=== PATIENT | female | born 1940 | race Caucasian/White ===

== ENCOUNTER → 2023-10-16 15:07 | Outpatient (REF) | payer OTHER, SELFPAY | LOC: HWRAD 15:07 | PROVIDERS: ATTENDING PHYSICIAN Physician Assistant Medical | DX: R05.9 Cough, unspecified (principal) | CPT/HCPCS: 71046 ==

== ENCOUNTER 2023-11-15 22:41 | Inpatient (IN) | payer OTHER, SELFPAY ==
[2023-11-15 17:45] VITALS: BP 143/70
[2023-11-15 19:23] VITALS: BP 135/67; BMI 35.9
--- NOTE | 2023-11-15 19:43 | ED.MUSCINJ ---
HPI-Injury
General
Chief Complaint: Fall
Source: patient
Exam Limitations: none
Time Seen by Provider: 11/15/23 18:16
Nursing documentation reviewed up to this point in time: agreed with
History of Present Illness-Injury
Is this injury a work related problem?: No
Is pt an associate of [facility]/[place]?: No
Initial Injury comments:
Patient to ED after trip and fall at home. Tripped over towel on kitchen floor. Fell onto her left hip. Denies hitting her head. COmplains of pain to left hip. 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 Brought to ED by daughter for eval
Past History
Past History
ED Past Medical History: GERD, HTN and Hypothyroidism
ED Past Surgical History: Orthopedic (knee, lumbar) and Other (sinus)
Social History
Tobacco: Non-smoker
Alcohol: None
Drug: None
Review of Systems
Review of Systems
Allergies reviewed?: Yes
All Other Systems: ROS reviewed and negative except as documented in HPI and ROS
Constitutional: Reports no symptoms
EENT: Reports no symptoms
Respiratory: Reports no symptoms
Cardiac: Reports no symptoms
ABD/GI: Reports no symptoms
: Reports no symptoms
Musculoskeletal: Reports joint pain (pain to left hip)
Skin: Reports other (skin tear to left dorsal hand)
Neurological: Reports no symptoms
Psychiatric: Reports no symptoms
Musculoskeletal Injury Exam
Musculoskeletal Injury Exam
Left Hip:
Pain with Movement?: Moderate
Tender to palpation?: Moderate
Soft tissue swelling?: Mild
External deformity and angulation?: None
Joint effusion?: None
Contusion?: Moderate
Hematoma-local bleeding into tissue?: None
Strain- Sprain- Tear (Connective tissue injury)?: None
Crepitus with movement?: No
Joint instability?: No
Malalignment/deformity?: No
Range of motion: Limited
Distal skin color and temperature: normal-warm & good color
Capillary Refill: normal
Normal distal neurovascular exam?: Yes
Peripheral Pulses: posterior tibial (left): 3+ and dorsalis pedis (left): 3+
Phy Exam
General Physical Exam
General Presentation: well appearing and mild distress
General age: appears stated age
General Skin: warm and dry
General Habitus: normal
General Mental: alert
Cardiovascular Exam
Cardiovascular Exam: regular rate/rhythm
Pulmonary Exam
Pulmonary Exam: lungs clear and no respiratory distress
Neurological Exam
Neurological Exam: alert, oriented x3, CN II-XII intact, no motor deficits, no sensory deficits and speech normal
Musculoskeletal Exam
Musculoskeletal Exam: neuro vasc intact and other (Subcapital fx L hip. )
Skin Exam
Skin Exam: normal color, warm/dry and no rash
Psychiatric Exam
Psychiatric Exam: normal mood/affect
Injury Course
Orders/Labs/Results
Orders:
Orders
11/15/23 18:28
Hip, Left 2-3 Views [CR Hip - LT w/wo Pel 2-3 Vw*] Urgent
Comment:
Reason For Exam: fall
Include a pelvis x-ray?: Yes
11/15/23 19:49
Morphine Sulfate 2 mg IV NOW STA
Ondansetron Injectable [Zofran] 4 mg IV NOW STA
11/15/23 19:57
Type+Screen Urgent
Complete Blood Count/With Diff Urgent
Comprehensive Metabolic Panel Urgent
PTT Urgent
Prothrombin Time Urgent
11/15/23 19:58
Consult Orthopedic [ORTHOPEDIC CONSULT] Urgent
Consulting Provider: Agusto Durbin
Was physician already notified: Yes
11/15/23 20:43
0.9% Sodium Chloride 1000 ml [Nss] 1,000 ml IV BOLUS
11/15/23 22:15
Admit/Transfer Patient As Directed
Co-Sign Provider:
Level of Care: Inpatient admission
Assign to:: Medical/Surgical
Physician / Group: Hospitalist
Diagnosis: broken hip
Reason for Hospitalization: Broken hip
Expected length of stay greater than two midnights?: Yes
ELOS- Estimated Length of Stay in days: 3
I certify the patient meets the requirements for IP care: Yes
PRN Pain Medication Management As Directed
May give lesser potent ordered pain med per pt: Yes
preference::
Protocol:: Medication orders for pain may be administered in a
manner that supports deferring to patient preference
when the pt is:
- Requesting an ordered lesser potent pain medication.
Least to most potent pain medications are defined
as: acetaminophen < NSAID < tramadol < opioids
(morphine, oxycodone, hydromorphone).
- Requesting a lesser dose of the same medication IF
ORDERED.
- Requesting a less intrusive route of administration
if both routes are prescribed by the provider (PO <
IV).
11/15/23 22:17
Code Status As Directed
Resuscitation Status: Full Code
Abnormal Lab Results
11/15/23
19:57
RBC 3.73 L 10^6/uL
(4.20-5.40)
Hgb 11.3 L g/dL
(12.0-16.0)
Hct 32.5 L %
(37.0-47.0)
Abs Immat Gran (auto) 0.1 H 10^3/uL
(0-0.05)
Absolute Neuts (auto) 8.0 H 10^3/uL
(1.4-6.5)
Absolute Lymphs (auto) 1.0 L 10^3/uL
(1.2-3.4)
Immature Gran % 0.6 H %
(0-0.5)
Neutrophils % 81.4 H %
(42.2-75.2)
Lymphocytes % 10.4 L %
(20.5-51.1)
Sodium 130 L mmol/L
(135-145)
BUN 22 H mg/dl
(7-17)
Glucose 101 H mg/dl
(70-99)
Total Protein 6.1 L g/dl
(6.3-8.2)
11/15/23 19:57
11/15/23 19:57
*Radiology
Radiology exam reviewed: radiology read reviewed
*Pulse Oximetry
Patient hypoxic: no
*Critical Care Note
Total Time (30-74mins, 75-104mins- exclusive of procedures): Not Applicable
Update Note
Update Note:
Dr. Durbin notified of injury. WIll keep NPO after midnight. For possible OR in AM
ED Attending Note
-
Portions of this chart may have been created with voice recognition software.� Occasional wrong word or��sound alike� substitutions may have occurred due to the inherent limitations of voice recognition software.
Discharge Plan
Departure
Patient Disposition: Admit
Date of Disposition: 11/15/23
Time of Disposition: 19:58
Presentation/result/management discussed w/ accepting MD/DO: Hospitalist
Patient with high blood pressure during this ER visit?: No
Condition: Fair
Discharge Problem:
Closed left hip fracture
Prescriptions:
No Action
losartan 50 mg Tablet
50 mg PO BID
carisoprodol 350 mg Tablet
350 mg PO TID PRN (Reason: muscle relaxer)
amlodipine 5 mg Tablet
5 mg PO HS
levothyroxine 50 mcg Tablet
50 mcg PO DAILY
metoprolol tartrate 50 mg Tablet
25 mg PO BID
omeprazole 20 mg Capsule,Delayed Release(Dr/Ec)
20 mg PO DAILY
hydroxychloroquine 200 mg Tablet
200 mg PO BID
clobetasol 0.05 % Lotion
1 applic TOPICAL BID
Referrals:
Ammy Cummings PA-C [Family Provider] -
Interventions
Interventions:
*Risk Screen - Suicide Last Done: 11/15/23 17:45
*General Assessment Last Done: 11/15/23 17:45
*Neglect/Abuse Screening Last Done: 11/15/23 17:45
*ED COVID-19 Vaccine History Last Done: 11/15/23 19:23
ED-Musculoskeletal Assessment Last Done: 11/15/23 19:23
ED- Neurological Assessment Last Done: 11/15/23 19:23
ED-Skin Assessment Last Done: 11/15/23 19:23
Discharge Date and Time
Print Language: SERBIAN
[2023-11-15] MEDS: MORPHINE SULFATE 2 MG IV (19:59)
[2023-11-15] MEDS: ZOFRAN 4 MG IV (19:59)
[2023-11-15 20:11] LABS: % Basophils 0.4 % (0-2); % Eosinophils 1.7 % (0-6); % Immature Granulocytes 0.6 % (0-0.5); % Lymphocytes 10.4 % (20.5-51.1); % Monocytes 5.5 % (1.7-9.3); % Neutrophils 81.4 % (42.2-75.2); Absolute Eosinophils 0.2 10^3/uL (0-0.7); Absolute Immature Granulocytes 0.1 10^3/uL (0-0.05); Absolute Monocytes 0.5 10^3/uL (0.1-0.6); Hematocrit 32.5 % (37.0-47.0); Hemoglobin 11.3 g/dL (12.0-16.0); Mean Corp Hgb Conc. 34.8 g/dL (33.0-37.0); Mean Corpuscular Hgb 30.3 pg (27.0-31.0); Mean Corpuscular Volume 87.1 fL (81.0-99.0); Mean Platelet Volume 8.6 fL (7.4-10.4); Nucleated Red Blood Cells % 0 %; Platelet Count 211 10^3/uL (130-400); Red Blood Cell Count 3.73 10^6/uL (4.20-5.40); Red Cell Dist. Width 13.6 % (11.5-14.5); White Blood Cell Count 9.8 10^3/uL (4.8-10.8)
[2023-11-15 20:20] LABS: INR 1.06; PT 13.6 Sec (11.4-14.6)
[2023-11-15 20:21] LABS: APTT 25.7 Sec (23.4-35.0)
[2023-11-15 20:24] LABS: ALT (SGPT) 16 U/L (0-35); AST (SGOT) 27 U/L (14-36); Albumin 3.8 g/dl (3.5-5.0); Alkaline Phosphatase 101 U/L (38-126); Blood Urea Nitrogen 22 mg/dl (7-17); Calcium 9.3 mg/dl (8.4-10.2); Carbon Dioxide 24 mmol/L (22-30); Chloride 99 mmol/L (98-107); Estimated Creatinine Clearance 48 ml/min; Glucose 101 mg/dl (70-99); Potassium 4.2 mmol/L (3.5-5.1); Sodium 130 mmol/L (135-145); Total Bilirubin 0.4 mg/dl (0.2-1.3); Total Protein 6.1 g/dl (6.3-8.2); eGFR 55.55
[2023-11-15] MEDS: NSS 1000 IV ×2 (21:00→23:56)
[2023-11-15 21:01] VITALS: BP 149/66
--- NOTE | 2023-11-15 21:53 | HPS.HSE ---
Family Physician
-
Family Physician: Ammy Cummings PA-C
Chief Complaint
-
Broken hip
History of Present Illness
83 woman had a fall at home. She tripped over a towel on kitchen floor. She fell onto her left hip. She denies hitting her head, but complains of pain to left hip. 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 At the time of my interview she was comfortable if
she was not moving. The x-ray in the ED showed a Slightly impacted subcapital fracture of the left hip.
Medical History
Past Medical History
Past Medical History: Reports Other
Additional Past Medical History:
knee & lumbar surgery
sinus surgery
Stage 3 chronic kidney disease,
Primary osteoarthritis involving multiple joints
Acrocyanosis
Body mass index [BMI] 35.0-35.9,
Subacute cutaneous lupus erythematosus
Bilateral nonexudative age-related macular degeneration, unspecified stage
Hiatal hernia
Prediabetes
Sjogren's syndrome, with unspecified organ involvement
Other obesity due to excess calories
Arthropathy of lumbar facet joint
History of DVT (deep vein thrombosis)
Primary hypertension
Acquired hypothyroidism
Osteopenia, unspecified location
Past Surgical History: Reports Other
Additional Past Surgical History:
see above
Social History
Tobacco: Non-smoker
Alcohol: None
Drug: None
Living: With Family
Family History
Family History: Not pertinent
Allergies / Home Medications
Allergies reflects when Allergies were last updated in [facility].
Home Medications with original date entered in [facility]
Allergy/Medication List:
Allergies
Allergy/AdvReac Type Severity Reaction Status Date / Time
No Known Allergies Allergy Unverified 11/15/23 17:45
Home Medications
amlodipine 5 mg tablet 5 mg PO HS 11/15/23
carisoprodol 350 mg tablet 350 mg PO TID PRN muscle relaxer 11/15/23
clobetasol 0.05 % lotion 1 applic topical BID 11/15/23
hydroxychloroquine 200 mg tablet 200 mg PO BID 11/15/23
levothyroxine 50 mcg tablet 50 mcg PO DAILY 11/15/23
losartan 50 mg tablet 50 mg PO BID 11/15/23
metoprolol tartrate 50 mg tablet 25 mg PO BID 11/15/23
omeprazole 20 mg capsule,delayed release 20 mg PO DAILY 11/15/23
Review of Systems
-
History Source: Patient
A 12 point ROS was completed and negative except as noted: Yes
Physical Exam
Vital Signs
Vital Signs
Temp Pulse Resp BP Pulse Ox
98.3 F 57 16 149/66 97
11/15/23 19:23 11/15/23 21:01 11/15/23 21:01 11/15/23 21:01 11/15/23 21:01
Physical Exam
General: Well Developed, Well Nourished, No Apparent Distress, Comfortable and Conversant
HEENT: Nose Appears Normal and Ears Appear Normal
Respiratory: Clear
Cardiac: S1/S2 and Regular Rhythm
GI: Soft, Non Tender and Non Distended
Musculoskeletal: No Clubbing, No Cyanosis and No Edema
Skin: Warm and Dry; No Rash
Neuro: Awake, Alert, Oriented and AO x 3
Psych: Calm
Laboratory Results
-
11/15/23 19:57
11/15/23 19:57
Laboratory Results
PT 13.6 Sec (11.4-14.6) 11/15/23 19:57
INR 1.06 11/15/23 19:57
APTT 25.7 Sec (23.4-35.0) 11/15/23 19:57
Total Bilirubin 0.4 mg/dl (0.2-1.3) 11/15/23 19:57
AST 27 U/L (14-36) 11/15/23 19:57
ALT 16 U/L (0-35) 11/15/23 19:57
Alkaline Phosphatase 101 U/L (38-126) 11/15/23 19:57
Data Reviewed
-
Lab Data: Labs Reviewed by me
Impression/Plan
-
IMPRESSION:
83 woman fell and broke her hip. Other significant findings:
Mild anemia H/H 11.3/32.5
Na 130
BUN/Creat 22/1.0
PLAN:
1. Anemia - not clinically significant at this time
Follow as outpatient
2. NA 130 - likely hypovolemic hyponatremia
Gentle hydration tonight with saline
Recheck in am
3. BUN/Creat > 20
Gentle hydration
recheck in am
4. Broken hip. Ortho aware
Ortho eval in am
Pain control as needed
NPO after MN, in case surgery is indicated in the AM
Full code
Heparin SQ for DVTp
[2023-11-15 23:36] VITALS: BP 155/72
[2023-11-15 23:37] VITALS: BMI 37.0
[2023-11-15] MEDS: HEPARIN 5000 UNITS SC (23:56)
[2023-11-16] VITALS (13 sets, daily range): BP systolic 92–170; BP diastolic 42–90
[2023-11-16] MEDS: MORPHINE SULFATE 2 MG IV ×2 (00:04→10:07)
[2023-11-16] MEDS: NORVASC 5 MG PO ×2 (00:04→21:47)
[2023-11-16] MEDS: PROTONIX 40 MG PO ×3 (01:40→21:45)
[2023-11-16] MEDS: SYNTHROID 50 MCG PO (05:52)
[2023-11-16 06:33] LABS: Hematocrit 31.5 % (37.0-47.0); Hemoglobin 10.8 g/dL (12.0-16.0); Mean Corp Hgb Conc. 34.3 g/dL (33.0-37.0); Mean Corpuscular Volume 87.5 fL (81.0-99.0); Mean Platelet Volume 8.9 fL (7.4-10.4); Platelet Count 191 10^3/uL (130-400); Red Cell Dist. Width 13.7 % (11.5-14.5); White Blood Cell Count 7.3 10^3/uL (4.8-10.8)
[2023-11-16 06:52] LABS: Blood Urea Nitrogen 16 mg/dl (7-17); Calcium 8.9 mg/dl (8.4-10.2); Carbon Dioxide 25 mmol/L (22-30); Chloride 102 mmol/L (98-107); Estimated Creatinine Clearance 53 ml/min; Glucose 93 mg/dl (70-99); Potassium 4.4 mmol/L (3.5-5.1); Sodium 131 mmol/L (135-145); eGFR > 60.00
--- NOTE | 2023-11-16 08:09 | W.PN.HOSP.TC ---
Today's Communication/Plan
-
Hip surgery today
Assessment / Plan
Assessment / Plan
Physical Exam
General: Not in acute distress
HEENT: Normocephalic
Respiratory: Clear to Auscultation Bilaterally
Cardiac: S1/S2 and Regular Rhythm
GI: Soft, Non Tender and Non Distended. Positive bowel sounds.
Musculoskeletal: No Cyanosis and No Edema
Skin: Warm and Dry
Neuro: Awake, Alert, Oriented and AO x 3
Psych: Calm

Assessment/Plan
83 y/o female presented after a fall at home. She tripped over a towel on kitchen floor. She fell onto her left hip. She denies hitting her head, but complained of pain to left hip. 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 The x-ray in the ED showed a
Slightly impacted subcapital fracture of the left hip.
83 woman with broken hip. mechanical fall. stable.
Left Hip Fracture
-Ortho consulted, appreciate recommendations
-Okay for surgery, elevated risk due to age and nature of surgery, but surgery is needed to avoid complications and disability going forward
Mild anemia H/H 11.3/32.5
-Continue to monitor CBC
Hyponatremia
-Continue to monitor BMP
BUN/Creat > 20 - RESOLVED status post gentle hydration
Hypertension
Hypothyroidism
History of DVT
CKD Stage 3
History of Subcutaneous SLE
Sjogren's Syndrome
Full code
Heparin SQ for DVTp
Anticipated Discharge: 24 - 48 hours
Subjective/Interval History
-
Date of Service: November 16, 2023
Patient was seen and examined. She denied any pain or any other complaints.
Objective Data
-
Labs:
Laboratory Results
11/15/23 11/16/23
19:57 06:10
WBC 9.8 7.3
Hgb 11.3 L 10.8 L
Hct 32.5 L 31.5 L
Plt Count 211 191
PT 13.6
INR 1.06
APTT 25.7
Sodium 130 L 131 L
Potassium 4.2 4.4
Chloride 99 102
Carbon Dioxide 24 25
BUN 22 H 16
Creatinine 1.0 0.9
Glucose 101 H 93
Calcium 9.3 8.9
Total Bilirubin 0.4
AST 27
ALT 16
Alkaline Phosphatase 101
Vital Signs:
Vital Signs
Temp Pulse Resp BP Pulse Ox
98.7 F 64 14 170/90 96
11/15/23 23:36 11/15/23 23:36 11/15/23 23:36 11/16/23 00:06 11/15/23 23:36
I&O
11/15/23 11/16/23 11/17/23
06:59 06:59 06:59
Intake Total 600 / 600
Balance 600 / 600
--- NOTE | 2023-11-16 09:14 | CON.ORTHO ---
Consultation
-
Date/Time Consultation Requested: Nov 27
Date/Time Consultation Performed: Nov 27
Requesting Provider: WAYNE Pascual
Performing Provider: Christiano Horton
Reason for Consultation: Left hip fracture
Consultation - Orthopedics
History
Full H&P Dictation to follow
HPI:
Requested in consultation to this very pleasant 83-year-old white female with a PMH of Stage 3 chronic kidney disease, Primary osteoarthritis involving multiple joints, Acrocyanosis, Subacute cutaneous lupus erythematosus, Bilateral nonexudative
age-related macular degeneration, unspecified stage, Hiatal hernia, Prediabetes, Sjogren's syndrome, with unspecified organ involvement, History of DVT (deep vein thrombosis), Primary hypertension, Acquired hypothyroidism, Osteopenia who sustained
a mechanical slip and fall on a towel in the kitchen at home. She landed on her left side. Due to an inability to get to her feet and ambulate she was transported here to where plain radiographs did confirm a subcapital fracture of her left
proximal femur. denies any previous issues or injuries to the left hip. She does use a rolling walker at baseline, which unfortunately she was not using at the time of the fall. She does have a history lumbar and knee surgery. We have been
requested in consultation with regards to her left hip fracture
Allergies / Home Medications
Allergy/AdvReac Type Severity Reaction Status Date / Time
No Known Allergies Allergy Unverified 11/15/23 17:45
�Medication �Instructions �Recorded
amlodipine 5 mg tablet 5 mg PO HS 11/15/23
carisoprodol 350 mg tablet 350 mg PO TID PRN muscle relaxer 11/15/23
clobetasol 0.05 % lotion 1 applic topical BID 11/15/23
hydroxychloroquine 200 mg tablet 200 mg PO BID 11/15/23
levothyroxine 50 mcg tablet 50 mcg PO DAILY 11/15/23
losartan 50 mg tablet 50 mg PO BID 11/15/23
metoprolol tartrate 50 mg tablet 25 mg PO BID 11/15/23
omeprazole 20 mg capsule,delayed 20 mg PO BID 11/15/23
release
Vital Signs / Lab Results
Temp Pulse Resp BP Pulse Ox
98.6 F 77 14 154/72 96
11/16/23 07:35 11/16/23 07:35 11/16/23 07:35 11/16/23 07:35 11/16/23 07:35
11/16/23 06:10
11/16/23 06:10
Assessment / Plan
PE: Afeb. Bedrest. Left hip skin intact. LLE short and ER. Generalized pain to palpation about the left hip. Positive logroll LLE. Deferred range of motion due to known fracture. Knee is nontender. Calf is soft and nontender. Neurovascularly
intact in her left lower extremity
Xrays: LEFT subcapital proximal femur fracture
Impresson: DELFINO
Plan: I discussed extensively with the patient and her daughter bedside. unfortunately her left hip fracture would be best served with hemiarthroplasty. I discussed the nonsurgical and surgical options and all the RBAs of each approach. After
accepting all the proposed risks of surgery they would like to proceed. we are planning for a bit later today under the direction of Dr. Horton to proceed to the OR for left hip hemiarthroplasty. Briefly discussed the postop and rehab course and
will appreciate [facility] assistance with disposition. She does use a rolling walker at baseline. surgical and blood consents have been signed. Operative site has been marked as the left hip. She will remain NPO. T&S has been requested. OR aware. [employer]
and irrigation products are on-call to the OR. Again we will be proceeding a bit later today for a hemiarthroplasty of her LEFT hip
[2023-11-16] MEDS: NSS 1000 IV (09:35)
[2023-11-16] MEDS: PLAQUENIL 200 MG PO ×2 (09:55→21:47)
[2023-11-16] MEDS: LOPRESSOR 25 MG PO ×2 (09:56→21:46)
[2023-11-16] MEDS: COZAAR 50 MG PO ×2 (09:56→21:48)
[2023-11-16] MEDS: HEPARIN 5000 UNITS SC ×2 (09:57→21:47)
--- NOTE | 2023-11-16 12:07 | CM ---
Addendum entered by Alexandra Poon 11/16/23 14:02:
immigration manager spoke with patient and patient's daughter and per patient's daughter patient had been using a scooter and electric w/c in home. immigration manager reviewed possible rehab options and patient's daughter has selected [facility], referral
sent to [facility].
Plan; Skilled placement at [facility] when stable, needs Auth.
Original Note:
immigration manager reviewed patient's chart and met with patient and patient states that she lives with her daughter and granddaughter in a 2 story home, with stair glide to 2nd floor where patient's bed and bathroom are. Patient is independent with adl's
and uses a walker with ambulation. Patient states that her daughter is a nurse and would like bilingual patient support caseworker to reach out to her to review discharge plan for patient.
Pharmacy: [facility]
PCP: Ammy Cummings
Plan; Patient for possible OR today and bilingual patient support caseworker will follow with patient progress for discharge planning, possible rehab as mentioned by orthopedic physician.
--- NOTE | 2023-11-16 17:57 | OR.RPT ---
Operative Report
Operative Report
Orthopaedic Surgery Operative Note
DATE OF OPERATION: 11/16/2023
PREOPERATIVE DIAGNOSES: Femoral neck fracture, left
POSTOPERATIVE DIAGNOSES: Same
OPERATION PERFORMED: Left hip hemiarthroplasty (22 modifier for complexity)
SURGEON: Nacho Horton MD
ELECTRO PLATER: Zoie Zelaya PA-C who helped with patient and limb positioning and retraction
ANESTHESIA: General
COMPLICATIONS: None.
ESTIMATED BLOOD LOSS: 100 mL.
DRAINS: None
SPECIMEN: None
FINDINGS: Displaced fracture of the femoral neck
IMPLANTS: Sasha [employer] stem size 13 standard offset, Size 47 Endo unipolar head, DJO bone cement, cement restrictor, distal centralizer
INDICATIONS: The patient presented to the emergency department after a fall with new onset hip pain. Xrays showed a left femoral neck fracture. I discussed treatment options with the patient and discussed that based on the displacement that fixation
of the fracture may have a high risk of complication and failure. I discussed surgical treatment with arthroplasty. Based on the patient�s age and activity level, shared decision was to proceed with hemiarthroplasty. I reviewed the risks, benefits,
and alternatives of various treatment options. The patient understood the risks which included, but were not limited to, bleeding, infection, failure to relieve pain, more pain than preop, damage to blood vessels and nerves, need for reoperation,
mechanical failure of the implants, wound healing problems, stiffness, instability, blood clot, pulmonary embolism, myocardial infarction, pneumonia, arrhythmia, CVA, and . The patient accepted these risks and wished to proceed. All questions
were answered, and informed consent was obtained.
PROCEDURE IN DETAIL:
The patient was identified in the preoperative holding area. The left hip was identified as the operative site. The patient was taken in the operating room and transferred to the operative table. General anesthesia was performed. IV antibiotics and
tranexamic acid were administered. The patient was placed in the lateral position with Stulberg hip positioners. Axillary roll was placed. The down leg was well padded. All bony prominences were well padded. The operative limb was prepped and draped
in the usual sterile fashion.
Time out was performed. A posterolateral approach to the hip was used. The skin incision was centered over the greater trochanter. This was taken down sharply through subcutaneous tissues. Meticulous hemostasis was achieved throughout the case with
electrocautery. We split the fascia patricia in line with skin incision. I split the gluteus amalia bluntly. We cauterized all crossing vessels as we split it. I palpated the sciatic nerve and made sure it was well posterior in the operative field. It
was protected throughout the case.
The posterior anatomy was distorted due to fracture hematoma and swelling. I performed a partial bursectomy to identify the short external rotators. The gluteus medius and minimus were identified and retracted anteriorly. I incised the piriformis
tendon and conjoint tendon at their insertions. These were tagged for later repair. I then performed a trapezoidal capsulotomy. The edges were tagged for later repair.
The femoral neck fracture was identified. The leg was flexed and internally rotated, and a fresh femoral neck cut was performed. The femur was translated anteriorly. Care was taken to preserve the labrum. The femoral head was carefully removed with
a doe and a tenaculum. The head measured to be 47mm. The acetabulum was inspected and noted not to have marked degenerative changes. A trial head was placed in the acetabulum and size 47 had appropriate fit and suction fit.
Attention was turned to the femur. Box osteotome and Charnley awe were used to open the canal. The femur was sequentially broached to size 13 which had appropriate fit and fill. A trial head was placed with standard offset neck and the hip was
reduced. Leg length and offset were checked and found to be appropriate. The hip was taken through complete range of motion and found to be stable in extension, the position of sleep, and at 90 degrees of flexion and internal rotation.
Trials were removed and the femoral canal was prepared with irrigation and ribbon gauze packing sequentially. A cement restrictor was placed into the femoral canal 1cm distal to the tip of the femoral stem. This was measured off the trial femoral
stem. Once the femoral canal was prepared, the cement was mixed. Once doughy in consistency, the cement was pressurized into the canal with a cement gun. The stem was then carefully inserted into the canal with care to minimize rotation or
micromotion. Excess cement was removed. Once the cement was polymerized, the joint was irrigated copiously. The acetabulum was inspected to be free of cement particles and other debris. The final head was impacted onto clean and dry trunion and the
hip was reduced. Leg length and stability were checked again and found to be acceptable. The sciatic nerve was inspected and noted to be free of tension and uninjured.
A dilute betadine soak was performed for approximately 3 minutes, and then the hip was copiously irrigated. I repaired the capsule, piriformis, and conjoint tendon with #2 Ethibond to drill holes in the greater trochanter. Local anesthetic was
injected. The fascia patricia was closed with #1 PDS in running fashion. The subcutaneous tissues were closed with 2-0 PDS in running fashion. The skin was reapproximated with 3-0 Monocryl subcuticular suture. I placed a Prineo dressing followed by a
Mepilex Ag dressing. The patient awoke from anesthesia without difficulty. Sponge and instrument counts were correct x2 at the end of the case.
I was present and participated in the entire procedure. The patient was sent to the recovery room in stable condition.
Of note, 22 modifer was added for BMI >35kg/m2 which added about 20 minutes additional time for positioning, exposure, and implanting the components
Ford Horton MD
[2023-11-16] MEDS: DILAUDID 0.25 MG IV (18:37)
[2023-11-16] MEDS: NORMOSOL-R 1000 IV (18:47)
[2023-11-16] MEDS: SENOKOT 17.2 MG PO (21:46)
[2023-11-16] MEDS: COLACE 100 MG PO (21:46)
[2023-11-16] MEDS: ASPIRIN 325 MG PO (21:46)
[2023-11-16] MEDS: NSS IV (22:57)
[2023-11-17] VITALS (7 sets, daily range): BP systolic 124–149; BP diastolic 54–69; PULSE 62
[2023-11-17] MEDS: ANCEF 5 IV ×2 (00:10→06:04)
[2023-11-17] MEDS: BACTROBAN 2% OINTMENT 1 APPLIC NASAL ×3 (00:43→20:47)
[2023-11-17] MEDS: NSS IV (06:03)
[2023-11-17] MEDS: SYNTHROID 50 MCG PO (06:04)
--- NOTE | 2023-11-17 06:39 | PTCARENOTE ---
Noninvasive hemoglobin not recorded machine is not functioning at this time.
--- NOTE | 2023-11-17 07:17 | W.PN.ORTHO ---
Today's Communication / Plan
-
83-year-old female POD #[address]urt [address] Horton
- WBAT LLE with use of walker for assistance
- Posterior Hip Precautions
- PT/OT
- Order placed for Hgb this AM
- ASA 325mg once daily x 4 weeks for DVT ppx
- Pain control per primary team
- Follow-up in 2 weeks for incision check and x-rays
- Orthopedic surgery will continue to follow along
Assessment
.
Distal Motor Intact: Yes
Dressing:
Clean, dry and intact.
Mepilex dressing in place. No drainage.
Calf is soft and nontender.
Assessment:
POD #[address] Left Hip Burt with Dr. Horton
Plan
.
Surgery / Date: Left Hip Burt / 11/16/[address] Horton
DVT Prophylaxis: Aspirin
Activity:
Out of bed.
PT/OT
Discharge Plan: Other
Discharge Information:
Appreciate CM
Subjective
.
.:
Patient resting comfortably. Denies any pain.
Vital Signs and Labs
.
Vital Signs and Labs:
Lab Results
11/16/23 06:10
Temp Pulse Resp BP Pulse Ox
98.2 F 72 16 124/57 93
11/17/23 03:20 11/17/23 03:20 11/17/23 03:20 11/17/23 03:20 11/17/23 03:20
PT 13.6 Sec (11.4-14.6) 11/15/23 19:57
INR 1.06 11/15/23 19:57
[2023-11-17 08:33] LABS: Hemoglobin 9.5 g/dL (12.0-16.0)
[2023-11-17] MEDS: COLACE 100 MG PO ×2 (09:21→20:47)
[2023-11-17] MEDS: PLAQUENIL 200 MG PO ×2 (09:22→20:47)
[2023-11-17] MEDS: ASPIRIN 325 MG PO (09:22)
[2023-11-17] MEDS: SENOKOT 17.2 MG PO ×2 (09:22→20:48)
[2023-11-17] MEDS: COZAAR 50 MG PO ×2 (09:22→20:50)
[2023-11-17] MEDS: PROTONIX 40 MG PO ×2 (09:22→20:47)
[2023-11-17] MEDS: LOPRESSOR 25 MG PO ×2 (09:22→20:52)
[2023-11-17] MEDS: HEPARIN 5000 UNITS SC ×2 (09:22→20:47)
[2023-11-17 09:56] LABS: ALT (SGPT) 15 U/L (0-35); AST (SGOT) 31 U/L (14-36); Albumin 3.2 g/dl (3.5-5.0); Alkaline Phosphatase 77 U/L (38-126); Blood Urea Nitrogen 14 mg/dl (7-17); Calcium 8.6 mg/dl (8.4-10.2); Carbon Dioxide 26 mmol/L (22-30); Chloride 99 mmol/L (98-107); Estimated Creatinine Clearance 59 ml/min; Glucose 112 mg/dl (70-99); Hematocrit 29.6 % (37.0-47.0); Magnesium 2.4 mg/dl (1.6-2.3); Mean Corp Hgb Conc. 33.8 g/dL (33.0-37.0); Mean Corpuscular Hgb 30.5 pg (27.0-31.0); Mean Corpuscular Volume 90.2 fL (81.0-99.0); Mean Platelet Volume 9.3 fL (7.4-10.4); Platelet Count 176 10^3/uL (130-400); Potassium 4.3 mmol/L (3.5-5.1); Red Blood Cell Count 3.28 10^6/uL (4.20-5.40); Red Cell Dist. Width 13.6 % (11.5-14.5); Sodium 129 mmol/L (135-145); Total Bilirubin 0.6 mg/dl (0.2-1.3); Total Protein 5.4 g/dl (6.3-8.2); White Blood Cell Count 8.2 10^3/uL (4.8-10.8); eGFR > 60.00
--- NOTE | 2023-11-17 11:25 | CM ---
Addendum entered by Alexandra Poon 11/17/23 16:29:
[facility]
Dr. Plata
Original Note:
regional commercial sales manager reviewed patient's chart and per physical therapy the recommendation is for skilled placement, per patient's daughter she reviewed skilled options and has selected [facility], per patient's daughter she has a relationship with
[facility] and feels the physical therapy at facility will meet her mother's needs. Per admissions at [facility] they have accepted patient. Patient will need Auth for skilled placement.
Plan; Skilled placement at [facility] when stable. regional commercial sales manager will need to obtain Auth.
--- NOTE | 2023-11-17 11:56 | PN.CDI ---
CDI
- -
CDI:
Physician Documentation Request
Admit Date: 11/15/23 22:41
Dear Doctor Justin,
Clinical Indicators:
Patient admitted with Left Hip Fracture; s/p Left hip hemiarthroplasty 11/15.
PMH includes: Osteopenia
08/05/2022 Bone Density Report, 'In the left proximal femur, the average density is 0.816 gr/cm sq., which is 1.0 SD below the mean for a young female population at peak bone density. Notably, the density of the femoral neck is 0.651 gr/cm sq., which
is 1.8 SD below peak mean density.'
11/15 H& P, '83 woman had a fall at home. She tripped over a towel on kitchen floor.'
Based on the above, could you clarify the likely etiology of the left hip fracture:
Multifactorial, due to fall and suspected osteoporosis
Due to fall only
Other, please specify
Use of terms such as suspected, likely, concern for, or probable (associated with a specific diagnosis that is being evaluated, monitored, or treated as if it exists) are acceptable and can be coded in the inpatient setting, when documented at the
time of discharge.
Thank you,
Altagracia uDrán RN BSN
CDI Specialist
available via tiger text
Please use your independent medical judgment in providing your response.
--- NOTE | 2023-11-17 12:38 | W.PN.HOSP.TC ---
Today's Communication/Plan
-
SNF placement pending
PT/OT
Assessment / Plan
Assessment / Plan
Physical Exam
General: Not in acute distress
HEENT: Normocephalic
Respiratory: Clear to Auscultation Bilaterally
Cardiac: S1/S2 and Regular Rhythm
GI: Soft, Non Tender and Non Distended. Positive bowel sounds.
Musculoskeletal: No Cyanosis and No Edema
Skin: Warm and Dry
Neuro: Awake, Alert, Oriented and AO x 3
Psych: Calm

Assessment/Plan
83 y/o female presented after a fall at home. She tripped over a towel on kitchen floor. She fell onto her left hip. She denies hitting her head, but complained of pain to left hip. The injury occurred just [employer]. The x-ray in the ED showed a
Slightly impacted subcapital fracture of the left hip.
83 woman with broken hip. mechanical fall. stable.
Left Hip Fracture Status Post Left Hip Burt with Dr. Horton
-Ortho consulted, appreciate recommendations
- WBAT LLE with use of walker for assistance
- Posterior Hip Precautions
- PT/OT
- ASA 325mg once daily x 4 weeks for DVT ppx (DAY 1 was 11/16/23)
- Pain control per primary team
- Follow-up in 2 weeks (November 30, 2023) for incision check and x-rays
- Orthopedic surgery will continue to follow along
Mild anemia
-Continue to monitor CBC
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
-Continue to monitor BMP
BUN/Creat > 20 - RESOLVED status post gentle hydration
Hypertension - Continue Losartan 50 mg PO BID
Hypothyroidism - Continue Levothyroxine
History of DVT
CKD Stage 3
History of Subcutaneous SLE - Continue Hydroxychloroquine
Sjogren's Syndrome
Full code
Heparin SQ for DVTp
Anticipated Discharge: Within 24 hours
Subjective/Interval History
-
Date of Service: November 17, 2023
Patient was seen and examined. She denied any new symptoms or complaints, and denied any new significant pain.
Objective Data
-
Labs:
Laboratory Results
11/17/23 11/17/23
07:13 08:55
WBC 8.2
Hgb 9.5 L 10.0 L
Hct 27.0 L 29.6 L
Plt Count 176
Sodium 129 L
Potassium 4.3
Chloride 99
Carbon Dioxide 26
BUN 14
Creatinine 0.8
Glucose 112 H
Calcium 8.6
Total Bilirubin 0.6
AST 31
ALT 15
Alkaline Phosphatase 77
Vital Signs:
Vital Signs
Temp Pulse Resp BP Pulse Ox
98.2 F 63 15 137/61 97
11/17/23 11:02 11/17/23 11:02 11/17/23 11:02 11/17/23 11:02 11/17/23 11:02
I&O
11/16/23 11/17/23 11/18/23
06:59 06:59 06:59
Intake Total 600 / 600 2300 / 2300
Balance 600 / 600 2300 / 2300
[2023-11-17] MEDS: TYLENOL 650 MG PO (17:46)
[2023-11-17] MEDS: NORVASC 5 MG PO (22:15)
[2023-11-18] MEDS: SYNTHROID 50 MCG PO (05:13)
[2023-11-18] MEDS: ROXICODONE 5 MG PO (05:15)
--- NOTE | 2023-11-18 07:42 | W.PN.ORTHO ---
Today's Communication / Plan
-
83-year-old female POD #2 Left Hip Hemiarthroplasty with Dr. Horton
- WBAT LLE with use of walker for assistance
- Posterior Hip Precautions
- PT/OT
- Order placed for Hgb this AM
- ASA 325mg once daily x 4 weeks for DVT ppx
- Pain control per primary team
- Follow-up in 2 weeks for incision check and x-rays
- Orthopedic surgery will follow peripherally; please reengage with questions/concerns
Assessment
.
Distal Motor Intact: Yes
Dressing:
Clean, dry and intact.
Plan
.
Surgery / Date: Left Hip Burt / 11/16/[address] Horton
Activity:
Out of bed.
PT/OT
Subjective
.
.:
Patient resting comfortably.
Vital Signs and Labs
.
Vital Signs and Labs:
Lab Results
11/17/23 08:55
11/17/23 08:55
Temp Pulse Resp BP Pulse Ox
98.2 F 66 18 149/69 96
11/17/23 23:55 11/17/23 23:55 11/17/23 23:55 11/17/23 23:55 11/18/23 01:25
PT 13.6 Sec (11.4-14.6) 11/15/23 19:57
INR 1.06 11/15/23 19:57
Non-invasive Hgb result: 9.7
[2023-11-18 07:45] VITALS: BP 134/74
[2023-11-18] MEDS: HEPARIN 5000 UNITS SC (08:27)
[2023-11-18] MEDS: LOPRESSOR 25 MG PO (08:27)
[2023-11-18] MEDS: PROTONIX 40 MG PO (08:27)
[2023-11-18] MEDS: ASPIRIN 325 MG PO (08:27)
[2023-11-18] MEDS: SENOKOT 17.2 MG PO (08:27)
[2023-11-18] MEDS: COLACE 100 MG PO (08:27)
[2023-11-18] MEDS: COZAAR 50 MG PO (08:27)
[2023-11-18] MEDS: PLAQUENIL 200 MG PO (08:27)
--- NOTE | 2023-11-18 08:55 | CM ---
Addendum entered by Alexandra Poon 11/18/23 12:19:
[facility]
Report [phone] [place]

Addendum entered by Alexandra Poon 11/18/23 10:32:
manager floor received Auth for 6 days skilled 11/18/23- 11/23/23 NRD Thursday to [phone], Auth # [id number].
Original Note:
Chart reviewed and patient is for possible discharge today, bed is available at [facility] today.
Plan; Skilled placement at [facility] today if medically stable, daughter's first choice for skilled placement.
--- NOTE | 2023-11-18 11:33 | W.PN.HOSP.TC ---
Addendum entered and electronically signed by Jamin Anderson MD 11/27/23 08:33:
Concern for acute blood loss anemia with possible baseline chronic anemia of chronic kidney disease
Original Note:
Today's Communication/Plan
-
Labs pending -- if results of labs look okay, then discharge today
Assessment / Plan
Assessment / Plan
Physical Exam
General: Not in acute distress
HEENT: Normocephalic
Respiratory: Clear to Auscultation Bilaterally
Cardiac: S1/S2 and Regular Rhythm
GI: Soft, Non Tender and Non Distended. Positive bowel sounds.
Musculoskeletal: No Cyanosis and No Edema
Skin: Warm and Dry
Neuro: Awake, Alert, Oriented and AO x 3
Psych: Calm

Assessment/Plan
83 y/o female presented after a fall at home. She tripped over a towel on kitchen floor. She fell onto her left hip. She denies hitting her head, but complained of pain to left hip. The injury occurred just [employer]. The x-ray in the ED showed a
Slightly impacted subcapital fracture of the left hip.
83 woman with broken hip. mechanical fall. stable.
Left Hip Fracture - due to fall and osteopenia - Status Post Left Hip Burt with Dr. Horton
-Ortho consulted, appreciate recommendations
- WBAT LLE with use of walker for assistance
- Posterior Hip Precautions
- PT/OT
- ASA 325mg once daily x 4 weeks for DVT ppx (DAY 1 was 11/16/23)
- Pain control per primary team
- Follow-up in 2 weeks (November 30, 2023) for incision check and x-rays
- Orthopedic surgery will continue to follow along
Mild anemia
-Recheck CBC and BMP outpatient
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
-Continue to monitor BMP
BUN/Creat > 20 - RESOLVED status post gentle hydration
Hypertension - Continue Losartan 50 mg PO BID
Hypothyroidism - Continue Levothyroxine
History of DVT
CKD Stage 3
History of Subcutaneous SLE - Continue Hydroxychloroquine
Sjogren's Syndrome
Full code
Heparin SQ for DVTp
More than 30 minutes spent in discharge including
Final examination of the patient
Summarizing hospital stay
Instructions for continuing care to all relevant caregivers
Preparation of discharge records, prescriptions, and referral forms
Total time spent (in minutes): 35
Anticipated Discharge: Today
Subjective/Interval History
-
Date of Service: November 18, 2023
Patient was seen and examined. She denied any pain or any other symptoms. Her daughter was present in the room at the time of encounter and did not have any concerns.
Objective Data
-
Vital Signs:
Vital Signs
Temp Pulse Resp BP Pulse Ox
98.1 F 80 16 134/74 95
11/18/23 07:45 11/18/23 07:45 11/18/23 07:45 11/18/23 07:45 11/18/23 07:45
I&O
11/17/23 11/18/23 11/19/23
06:59 06:59 06:59
Intake Total 2300 / 2300 1140 / 1140
Balance 2300 / 2300 1140 / 1140
[2023-11-18 11:35] VITALS: BP 120/57; PULSE 60; O2SAT 96
[2023-11-18 12:30] LABS: Hematocrit 28.3 % (37.0-47.0); Hemoglobin 9.4 g/dL (12.0-16.0); Mean Corp Hgb Conc. 33.2 g/dL (33.0-37.0); Mean Corpuscular Hgb 29.8 pg (27.0-31.0); Mean Corpuscular Volume 89.8 fL (81.0-99.0); Mean Platelet Volume 9.4 fL (7.4-10.4); Platelet Count 191 10^3/uL (130-400); Red Blood Cell Count 3.15 10^6/uL (4.20-5.40); Red Cell Dist. Width 13.9 % (11.5-14.5); White Blood Cell Count 7.9 10^3/uL (4.8-10.8)
[2023-11-18 12:54] LABS: Blood Urea Nitrogen 20 mg/dl (7-17); Calcium 8.8 mg/dl (8.4-10.2); Carbon Dioxide 23 mmol/L (22-30); Chloride 100 mmol/L (98-107); Estimated Creatinine Clearance 40 ml/min; Glucose 100 mg/dl (70-99); Potassium 3.8 mmol/L (3.5-5.1); Sodium 132 mmol/L (135-145); eGFR 44.64
--- NOTE | 2023-11-18 13:30 | W.DS.TRANS ---
DC Summary - Edi Manager
-
Discharge Instructions:
Discharge Diagnosis/Procedures Left Hip Fracture - due to fall and osteopenia -
Status Post Left Hip Ubrt with Dr. Horton
Mild anemia
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
Elevated Creatinine - Acute Kidney Injury
Hypertension
Hypothyroidism
History of DVT
CKD Stage 3
History of Subcutaneous SLE
Sjogren's Syndrome
Diet Restrict fluids to 48 oz,As tolerated,Regular
Activity With Walker,As tolerated
Additional Activity posterior hip precautions for 6 weeks.
Driving Restrictions Not until seen by your Dr
Bathing Restrictions OK to Shower
Blood Work PATIENT NEEDS CBC AND BMP RECHECKED IN 1 TO 2
DAYS
Other Services PT,OT
Instructions:
Stand-Alone Forms:
Changes to Home Medications: Yes
Discharge Medications:
DC Medications w/original date entered in [facility]
amlodipine 5 mg tablet 5 mg PO HS Blood Pressure 11/15/23
carisoprodol 350 mg tablet 350 mg PO TID PRN muscle relaxer 11/15/23
clobetasol 0.05 % lotion 1 applic topical BID Skin Issues 11/15/23
hydroxychloroquine 200 mg tablet 200 mg PO BID lupus 11/15/23
levothyroxine 50 mcg tablet 50 mcg PO DAILY Thyroid 11/15/23
losartan 50 mg tablet 50 mg PO BID Blood Pressure 11/15/23
metoprolol tartrate 50 mg tablet 25 mg PO BID Blood Pressure 11/15/23
omeprazole 20 mg capsule,delayed release 20 mg PO BID Gastrointestinal Issue 11/15/23
aspirin 325 mg tablet 325 mg PO DAILY #26 tabs 11/18/23
docusate sodium 100 mg capsule 100 mg PO BID #60 caps 11/18/23
polyethylene glycol 3350 17 gram oral powder packet (HealthyLax) 17 g PO DAILYPRN PRN constipation #14 ea 11/18/23
sennosides 8.6 mg tablet (Senna Laxative) 17.2 mg (2 x 8.6 mg) PO BID #30 tabs 11/18/23
Home Medication Changes
Aspirin 325 mg daily, Docusate, HealthyLax and Senna Laxative are all new medications.
Pending Results: No
Total time spent discharging patient (in min): 35
--- NOTE | 2023-11-18 14:40 | PN.CDI ---
CDI
- -
CDI:
Physician Documentation Request
Admit Date: 11/15/23 22:41
Dear Doctor Justin,
Clinical Indicators:
Patient admitted with Left Hip Fracture; status post Left Hip Hemiarthroplasty 11/15.
PMH includes CKD 3
11/15 Operative report, EBL: 100 ml
11/17 PN,'Mild anemia -Recheck CBC and BMP outpatient'
Hgb/Hct trend:
11/15/23 11/17/23 11/18/23
19:57 07:13 11:56
Hgb 11.3 L 9.5 L 9.4 L
Hct 32.5 L 27.0 L 28.3 L
Based on the above, could you clarify, in your progress note, which of the following is the most likely type of anemia you are evaluating, monitoring and/or treating?
Acute blood loss anemia with baseline chronic anemia (Specify type)
Anemia of chronic disease only
Other, please specify
Use of terms such as suspected, likely, concern for, or probable (associated with a specific diagnosis that is being evaluated, monitored, or treated as if it exists) are acceptable and can be coded in the inpatient setting, when documented at the
time of discharge.
Thank you,
Altagracia Durán RN BSN
CDI Specialist
available via tiger text
Please use your independent medical judgment in providing your response.
[2023-11-18 15:48] VITALS: BP 136/74
--- NOTE | 2023-11-27 08:33 | W.DCSUMMARY ---
Discharge Summary
Discharge Data
Date of Admission: 11/15/23
Date of Discharge: 11/18/23
Total time spent discharging patient (in min): 35
-
Pending Results: No
Hospital Course
83 y/o female who presented after a mechanical fall at home, and found to have a left hip fracture. Orthopedics was consulted, and patient had a left hemiarthroplasty on November 16, 2023. Patient was placed on Aspirin 325 mg daily for a duration of 4
weeks for Deep Vein Thrombosis prophylaxis. Patient was doing well after the surgery and was discharged to a Intermediate Facility.
Discharge Plan
-
Patient Disposition: [facility]/SNF
Discharge Diagnosis/Procedures: Left Hip Fracture - due to fall and osteopenia - Status Post Left Hip Burt with Dr. Horton
Mild anemia
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
Elevated Creatinine - Acute Kidney Injury
Hypertension
Hypothyroidism
History of DVT
CKD Stage 3
History of Subcutaneous SLE
Sjogren's Syndrome
Condition: Fair
Diet: As tolerated, Regular and Restrict fluids to 48 oz
Activity: As tolerated and With Walker
Additional Activity: posterior hip precautions for 6 weeks.
Driving Restrictions: Not until seen by your Dr
Bathing Restrictions: OK to Shower
Blood Work: PATIENT NEEDS CBC AND BMP RECHECKED IN 1 TO 2 DAYS
Other Services: PT and OT
Activity Restrictions/Additional Instructions:
PATIENT NEEDS CBC AND BMP RECHECKED IN 1 TO 2 DAYS TO MAKE SURE HEMOGLOBIN, WHITE BLOOD CELLS, ELECTROLYTES AND KIDNEY FUNCTION ARE OKAY -- PATIENT'S CREATININE DAREN TO 1.2 FROM 1.0 (THE VALUE WHEN SHE CAME IN) AND THIS NEEDS TO BE FOLLOWED CLOSELY
AND MANAGEMENT DONE ACCORDINGLY.
Activity: WBAT LLE with use of walker for assistance and follow posterior hip precautions
Follow-up with Dr. Horton (orthopedics office) by November 30, 2023
Referrals:
Ammy Cummings PA-C [Family Provider] - in one to two days (Needs repeat CBC and BMP)
Nacho Horton MD [Active] - (Please call the office to schedule a postop visit 2 weeks from date of surgery for staple/suture removal; if able to perform at [facility], can followup with our office at 4 weeks from date of surgery)
Additional Discharge Medication Instructions: Aspirin 325 mg daily, Docusate, HealthyLax and Senna Laxative are all new medications.
Prescriptions:
New
aspirin 325 mg Tablet
325 mg PO DAILY Qty: 26 0RF
Rx Instructions:
1st day was November 16, 2023; needs to be continued for 4 weeks
docusate sodium 100 mg Capsule
100 mg PO BID Qty: 60 0RF
polyethylene glycol 3350 [HealthyLax] 17 gram Powder In Packet
17 g PO DAILYPRN PRN (Reason: constipation) Qty: 14 0RF
sennosides [Senna Laxative] 8.6 mg Tablet
17.2 mg PO BID Qty: 30 0RF
Continued
losartan 50 mg Tablet
50 mg PO BID
carisoprodol 350 mg Tablet
350 mg PO TID PRN (Reason: muscle relaxer)
amlodipine 5 mg Tablet
5 mg PO HS
levothyroxine 50 mcg Tablet
50 mcg PO DAILY
metoprolol tartrate 50 mg Tablet
25 mg PO BID
omeprazole 20 mg Capsule,Delayed Release(Dr/Ec)
20 mg PO BID
hydroxychloroquine 200 mg Tablet
200 mg PO BID
clobetasol 0.05 % Lotion
1 applic TOPICAL BID
Discharge Orders:
Discharge Patient (As Directed); Ordered 11/18/23
Ordered By: Jamin Anderson
Discharge Date and Time
Discharge Date/Time: 11/18/23 16:10
Print Language: URUGUAYAN
== END 2023-11-18 16:10 | DRG 522 ==
LOC: 2 SOUTH 22:41
PROVIDERS: Nurse Practitioner; Student in an Organized Health Care Education/Training Program; ADMITTING PHYSICIAN Internal Medicine; ATTENDING PHYSICIAN Hospitalist; EMERGENCY PHYSICIAN Emergency Medicine; FAMILY PHYSICIAN Physician Assistant Medical; OTHER PHYSICIAN Orthopaedic Surgery
PROC: 0SRS0J9 Replacement of Left Hip Joint, Femoral Surface with Synthetic Substitute, Cemented, Open Approach (ICD-10-PCS; 2023-11-16)
DX: M84.652A Pathological fracture in other disease, left femur, initial encounter for fracture (principal); E22.2 Syndrome of inappropriate secretion of antidiuretic hormone; D62 Acute posthemorrhagic anemia; M85.852 Other specified disorders of bone density and structure, left thigh; I12.9 Hypertensive chronic kidney disease with stage 1 through stage 4 chronic kidney disease, or unspecified chronic kidney disease; N18.30 Chronic kidney disease, stage 3 unspecified; M15.9 Polyosteoarthritis, unspecified; L93.1 Subacute cutaneous lupus erythematosus; M35.00 Sjogren syndrome, unspecified; E66.09 Other obesity due to excess calories; E03.9 Hypothyroidism, unspecified; E86.1 Hypovolemia; I73.89 Other specified peripheral vascular diseases; D63.1 Anemia in chronic kidney disease; R73.03 Prediabetes; H35.3130 Nonexudative age-related macular degeneration, bilateral, stage unspecified; K21.9 Gastro-esophageal reflux disease without esophagitis; Z86.718 Personal history of other venous thrombosis and embolism; Z79.890 Hormone replacement therapy; Z68.37 Body mass index [BMI] 37.0-37.9, adult; W01.0XXA Fall on same level from slipping, tripping and stumbling without subsequent striking against object, initial encounter
CPT/HCPCS: 71045; 73502; 80048; 80053; 83735; 85014; 85018; 85025; 85027; 85610; 85730; 86850; 86900; 86901; 93005; 96361; 96374; 96375; 97116; 97162; 97166; 99285; C1713; C1776

== ENCOUNTER → 2024-09-30 09:40 | Outpatient (REF) | payer OTHER, SELFPAY | LOC: RAD 09:40 | PROVIDERS: ATTENDING PHYSICIAN Internal Medicine; FAMILY PHYSICIAN Physician Assistant Medical | DX: M81.0 Age-related osteoporosis without current pathological fracture (principal) | CPT/HCPCS: 77080 ==